=== PATIENT | female | born 1955 | race Caucasian/White ===

== ENCOUNTER 2018-01-26 06:19 | Day surgery (SDC) | payer BC ==
[~2018-01-26 06:19] MED LIST: Buffered Lidocaine 0.9% SYRIN* 5 ML/SYR SYRINGE INTRADERM ONE; Dexamethasone IV* 4 MG/ML 1 ML (4 MG) IV SLOW PU ONE; Famotidine TAB* 20 MG PO ONE
[2018-01-26] MEDS ORDERED: Buffered Lidocaine 0.9% SYRIN* 5 ML/SYR SYRINGE ONE (06:35)
[2018-01-26] MEDS ORDERED: Dexamethasone IV* 4 MG/ML 1 ML (4 MG) ONE (06:35)
[2018-01-26] MEDS ORDERED: Famotidine TAB* 20 MG ONE (06:35)
[2018-01-26] MEDS ORDERED: ceFAZolin 2 GM PREMIX (*) 0 GM/0 ML BAG IVPB ONE (06:35)
[2018-01-26] MEDS ORDERED: Midazolam* 1 MG/ML 2 ML VIAL (2 MG) ONE (07:07)
[2018-01-26] MEDS ORDERED: fentaNYL* 50 MCG/ML 2 ML VIAL (100 MCG VIAL) ONE ×2 (07:07→08:52)
[2018-01-26] MEDS ORDERED: Bupivacaine 0.5% PF 10 ML VIAL INJ ONE (07:10)
[2018-01-26] MEDS ORDERED: Lidocaine 2% PF* 10 ML AMP ONE (07:10)
[2018-01-26] MEDS ORDERED: Phenylephrine INJ* 10 MG/ML 1 ML VIAL (10 MG) ONE (07:41)
[2018-01-26] MEDS ORDERED: Propofol* 10 MG/ML 20 ML BTL IV PUSH ONE ×4 (08:05→09:23)
[2018-01-26] MEDS ORDERED: Naloxone* 0.4 MG/ML 1 ML VIAL IV PRN (08:37)
[2018-01-26] MEDS ORDERED: fentaNYL* 50 MCG/ML 2 ML VIAL (100 MCG VIAL) IV PRN (08:37)
[2018-01-26] MEDS ORDERED: Ondansetron INJ* 2 MG/ML VIAL IV PRN (08:37)
[2018-01-26 10:50] VITALS: BP 120/77
--- NOTE | 2018-01-27 07:22 | OP ---
DATE OF OPERATION: 01/26/18 - [facility] DATE OF : 55 SURGEON: Odin Briggs MD CHANNELING MACHINE OPERATOR: Rayne Valentin PA-C PRE-OP DIAGNOSES: 1. Recurrent right hallux valgus, previous failed double osteotomy. 2. Third and fourth hammertoes. POST-OP DIAGNOSES: 1. Recurrent right hallux valgus, previous failed double osteotomy. 2. Third and fourth hammertoes. OPERATIVE PROCEDURE: Right 1st metatarsophalangeal joint fusion, 3rd and 4th proximal interphalangeal resection arthroplasty. DESCRIPTION OF PROCEDURE: Patient was taken to the operating room where we made a straight medial incision over the 1st MTP joint. The staple was removed from the proximal phalanx, the plate left along the metatarsal shaft. We used the cone and cup reamers to prepare the joint for arthrodesis. Paired cross screws of 3.0 mm partially threaded cannulated screws were placed with joint in the neutral position and then the small T-shape placed along the dorsum. Good fixation alignment was obtained. We opened up the 3rd and 4th PIP joints with transverse elliptical incisions. The condyles were removed after releasing the collateral ligaments. We then used the MiToe implants to fix both of third and fourth PIP joints in the neutral position. The tendons were repaired dorsally as well as the skin with interrupted nylon sutures. The medial incision was irrigated thoroughly and closed with 2-0 Vicryl and then nylon for the skin. Compression dressing was applied. [id number]/[facility] #: [id number] MTDD
--- NOTE | 2018-01-27 09:02 | RAD ---
CPT II Codes: G9500 Indication: Right first metatarsal fusion. Fluoroscopic services provided for referring physician. 36 seconds of fluoroscopy time was used. 4 spot images demonstrates fusion of the first metatarsal phalangeal joint. IMPRESSION: Fusion of first metatarsal phalangeal joint and first metatarsal.
== END 2018-01-26 11:18 | disposition home or self-care (01) ==
LOC: OR 06:19
PROVIDERS: ATTEND Orthopaedic Surgery
DX: M20.11 Hallux valgus (acquired), right foot (principal); M20.21 Hallux rigidus, right foot; M20.41 Other hammer toe(s) (acquired), right foot; Z87.891 Personal history of nicotine dependence; F41.8 Other specified anxiety disorders; F31.9 Bipolar disorder, unspecified
CPT/HCPCS: 76000; 88304; 88311; A9270-GY; C1713; C1776; J0690; J1100; J2001; J2250; J2704; J3010

== ENCOUNTER 2018-03-30 11:25 | Day surgery (SDC) | payer BC ==
--- NOTE | 2018-03-30 04:01 | HP ---
HISTORY AND PHYSICAL: DATE OF ADMISSION: 03/30/18 DATE OF VISIT: 03/26/18 ATTENDING SURGEON: Odin Briggs MD. HISTORY OF PRESENT ILLNESS: Ms. Cuba, aged 62, is 7 weeks out from the forefoot reconstruction with right side with fourth toe PIP resection arthroplasty using a MiToe implant. Postoperatively she has had a progressive and persistent pain at the DIP joint where it appears that her hardware is prominent, eroding through the middle phalanx and causing skin pressure. She does not have any skin breakdown. The plan at this point will be revision of the hammer toe repair possibly with pinning. PAST MEDICAL HISTORY: She does have a history of rheumatoid arthritis and some mild depression. MEDICATIONS: The patient is a healthy 62-year-old patient who is on: 1. Methotrexate 2.5 mg daily. 2. Sertraline 200 mg per day. 3. Lamictal 200 mg twice a day. 4. Abilify 2.5 mg at night. 5. Advil as needed. 6. Hydroxychloroquine 200 mg twice a day. ALLERGIES: AUGMENTIN and MORPHINE. SOCIAL HISTORY: She does not smoke. REVIEW OF SYSTEMS: Negative for recent fevers, chills, headache, chest pain, shortness of breath, abdominal distress. Neurologically she has anxiety. PHYSICAL EXAMINATION GENERAL: Ms. Cuba is a healthy appearing woman with minimal stigmata of rheumatoid arthritis. VITAL SIGNS: Her blood pressure is 110/60. She is afebrile and she is thin and healthy in appearance. CHEST: Exam is clear to auscultation. No wheezing or rales noted. CARDIAC: Regular rate. No extra sounds noted. ABDOMEN: Flat, nontender, soft. EXTREMITIES: Exam shows her to have warm sensate right foot with intact skin envelope. Hallux alignment is neutral and no pain with passive range of motion nor the third PIP but the fourth PIP has recurrence of deformity through the DIP joint where she has tenderness over the end of the MiToe implant. Skin is intact. IMPRESSION: The patient with hardware failure, right fourth hammer toe. PLAN/RECOMMENDATIONS: Plan at this point will be revision of the hammer toe with removal of hardware. [id number]/[facility] #: [id number] MTDD
[~2018-03-30 11:25] MED LIST changes: -Dexamethasone IV* 4 MG/ML 1 ML (4 MG) IV SLOW PU ONE; +Famotidine IV* 10 MG/ML 2 ML (20 mg) IV ONE; -Famotidine TAB* 20 MG PO ONE
[2018-03-30] MEDS ORDERED: Famotidine IV* 10 MG/ML 2 ML (20 mg) ONE (11:27)
[2018-03-30] MEDS ORDERED: ceFAZolin 2 GM PREMIX (*) 2 GM/50 ML BAG IVPB ONE (11:28)
[2018-03-30] MEDS ORDERED: Bupivacaine 0.5% PF 10 ML VIAL INJ ONE (14:03)
[2018-03-30] MEDS ORDERED: fentaNYL* 50 MCG/ML 2 ML VIAL (100 MCG VIAL) ONE (14:31)
[2018-03-30] MEDS ORDERED: Midazolam* 1 MG/ML 5 ML VIAL (5 MG) ONE (14:31)
[2018-03-30] MEDS ORDERED: HYDROmorphone INJ* 0.5 MG/0.5 ML SYRINGE IV PRN (14:43)
[2018-03-30] MEDS ORDERED: Naloxone* 0.4 MG/ML 1 ML VIAL IV PRN (14:43)
[2018-03-30] MEDS ORDERED: DiMENhydriNATE IV* 50 MG/ML VIAL IV PUSH PRN (14:43)
[2018-03-30] MEDS ORDERED: Acetaminophen TAB* 325 MG PO PRN (14:43)
[2018-03-30] MEDS ORDERED: oxyCODONE TAB* 5 MG TAB PO PRN (14:43)
[2018-03-30] MEDS ORDERED: Lidocaine 2% PF* 10 ML AMP ONE (14:57)
[2018-03-30] MEDS ORDERED: diPHENhydraMINE IV* 50 MG/ML 1 ml VIAL (BENADRYL) ONE (14:57)
[2018-03-30] MEDS ORDERED: Ketorolac INJ* 30 MG/ML 1 ML VIAL ONE (14:58)
[2018-03-30] MEDS ORDERED: Dexamethasone IV* 4 MG/ML 1 ML (4 MG) ONE (14:58)
[2018-03-30] MEDS ORDERED: Propofol* 10 MG/ML 20 ML BTL IV PUSH ONE (14:58)
[2018-03-30 16:24] VITALS: BP 112/69
--- NOTE | 2018-03-31 02:03 | OP ---
DATE OF OPERATION: 03/30/18 - [facility] DATE OF : 55. ATTENDING SURGEON: Odin Briggs M.D. [place]: Rayne Valentin PA-C PRE-OP DIAGNOSIS: Failure of hardware with pain at right 4th hammertoe. POST-OP DIAGNOSIS: Failure of hardware with pain at right 4th hammertoe. OPERATIVE PROCEDURE: Removal of the MiToe implant, right great toe, and revision and fixation with an intramedullary pin. DESCRIPTION OF PROCEDURE: The patient was taken to the operating room where local anesthetic was given around the 4th toe. We made a transverse elliptical incision at the level of the DIP joint, located the eroded hardware that had penetrated through the middle phalanx distally. The MiToe was removed with the needle special client bus driver simply unscrewing it proximally. We then debrided the DIP joint, irrigated thoroughly, and then pinned it longitudinally with 0.62 C-wire, thus correcting the deformity. The skin was closed with a 4-0 nylon suture and a compression dressing applied. [id number]/[facility] #: [id number] [facility] CENTERLanny
== END 2018-03-30 16:43 | disposition home or self-care (01) ==
LOC: OR 11:25
PROVIDERS: ATTEND Orthopaedic Surgery
DX: T84.84XA Pain due to internal orthopedic prosthetic devices, implants and grafts, initial encounter (principal); Y83.1 Surgical operation with implant of artificial internal device as the cause of abnormal reaction of the patient, or of later complication, without mention of misadventure at the time of the procedure; M20.41 Other hammer toe(s) (acquired), right foot; M06.9 Rheumatoid arthritis, unspecified; F32.89 Other specified depressive episodes; K58.9 Irritable bowel syndrome, unspecified
CPT/HCPCS: 88300; C1776; J0690; J1100; J1200; J1885; J2001; J2250; J2704; J3010

== ENCOUNTER 2018-09-21 12:29 | Day surgery (SDC) | payer BC ==
[2018-09-21] MEDS ORDERED: ceFAZolin 2 GM PREMIX in ORs 0 GM/0 ML BAG IVPB ONE (13:29)
[2018-09-21] MEDS ORDERED: Midazolam* 1 MG/ML 5 ML VIAL (5 MG) ONE (13:58)
[2018-09-21] MEDS ORDERED: fentaNYL* 50 MCG/ML 2 ML VIAL (100 MCG VIAL) ONE ×2 (13:58→16:29)
[2018-09-21] MEDS ORDERED: Clindamycin 900 MG/D5W BAG(*) 900 MG/50 ML BAG IVPB ONE (14:05)
[2018-09-21] MEDS ORDERED: Lidocaine 2% PF* 10 ML AMP ONE (14:27)
[2018-09-21] MEDS ORDERED: Propofol* 10 MG/ML 20 ML BTL ONE (14:52)
[2018-09-21] MEDS ORDERED: Naloxone* 0.4 MG/ML 1 ML VIAL IV PRN (14:58)
[2018-09-21] MEDS ORDERED: Ketorolac INJ* 30 MG/ML 1 ML VIAL ONE (15:53)
[2018-09-21] MEDS ORDERED: oxyCODONE/Acetamin 5/325 MG* TAB ONE (15:53)
[2018-09-21 17:58] VITALS: BP 109/63
--- NOTE | 2018-09-21 22:36 | OP ---
DATE OF OPERATION: 09/21/18 - [facility] DATE OF : 55 SURGEON: Odin Briggs MD PRE-OP DIAGNOSIS: Failed hardware, right third hammertoe repair. POST-OP DIAGNOSIS: Failed hardware, right third hammertoe repair. OPERATIVE PROCEDURE: Removal of hardware. DESCRIPTION OF PROCEDURE: The patient was taken to the operating room where a lateral transverse elliptical incision was made over the dorsum of the third PIP joint with the toe flexed. Through this incision, we were able to expose the end of the interpositional implant. This was twisted out using a needle auto transport driver. I then used a small rongeur to flatten the bone surfaces at this level and by removing a generous wedge of the dorsal skin, we were able to close the skin with a dermodesis effect holding the toe straight. Nylon was used for this. We then placed a compression dressing. [id number]/[facility] #: [id number] MTDLanny
== END 2018-09-21 17:59 | disposition home or self-care (01) ==
LOC: OR 12:29
PROVIDERS: ATTEND Orthopaedic Surgery
DX: T84.213A Breakdown (mechanical) of internal fixation device of bones of foot and toes, initial encounter (principal); T84.84XA Pain due to internal orthopedic prosthetic devices, implants and grafts, initial encounter; Y83.1 Surgical operation with implant of artificial internal device as the cause of abnormal reaction of the patient, or of later complication, without mention of misadventure at the time of the procedure; M06.9 Rheumatoid arthritis, unspecified; F41.8 Other specified anxiety disorders; Z87.891 Personal history of nicotine dependence; K21.9 Gastro-esophageal reflux disease without esophagitis
CPT/HCPCS: 88300; A9270-GY; J0690; J1885; J2001; J2250; J2704; J3010